=== PATIENT | male | born 1985 | race African-American/Black ===

== ENCOUNTER 2017-09-06 18:12 | Emergency (ER) | payer SELFPAY ==
[2017-09-06] MEDS ORDERED: TETANUS & DIPHTHERIA TOX,ADULT 0.5 ML VIAL ONE (19:20)
--- NOTE | 2017-09-06 19:28 | EDPHYS ---
Physician Documentation [facility] Name: Cornelius Murray Age: 32 yrs Sex: Male : 1985 Arrival Date: 09/06/2017 Time: 18:17 Bed 14 Private MD: None, None ED Physician Brandt Valle HPI: 09/06 19:12 This 32 yrs old Black Male presents to ER via Ambulatory with complaints of Foot Injury.gs 19:14 The patient presents with an injury. The complaints affect the right foot. 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 Onset: The symptoms/episode began/occurred acutely, just prior to arrival. Modifying factors: the symptoms are aggravated by weight bearing. Associated signs and symptoms: Pertinent positives: small laceration , Pertinent negatives: numbness. Historical: - Allergies: 18:30 No Known Allergies; hj - Home Meds: 18:30 None [Active]; hj - PMHx: 18:30 None; hj - PSHx: 18:30 None; hj - Immunization history:: Adult Immunizations up to date. - Social history:: Smoking status: Patient uses tobacco products, smokes one pack cigarettes per day. Patient uses alcohol, occasionally. - Ebola Screening: : Patient negative for fever greater than or equal to 101.5 degrees Fahrenheit, and additional compatible Ebola Virus Disease symptoms Patient denies exposure to infectious person Patient denies travel to an Ebola-affected area in the 21 days before illness onset. ROS: 19:20 Neuro: Negative for loss of consciousness. gs Exam: 19:20 Neuro: Awake and alert, GCS 15, oriented to person, place, time, and situation. gs Cranial nerves II-XII grossly intact. Motor strength 5/5 in all extremities. Sensory grossly intact. Cerebellar exam normal. Normal gait. 19:20 Constitutional: The patient appears in no acute distress, alert, awake. 19:20 Neck: C-spine: vertebral tenderness, is not appreciated. 19:20 Musculoskeletal/extremity: Extremities: noted in the Right second toenail, Right third toenail and Right fourth toenail: laceration, superficial lacerations, ROM: no acute changes, Circulation is intact in all extremities. 19:20 Skin: injury, laceration(s), that can be described as without bleeding, superficial distal phalanx r 2-4. Vital Signs: 18:31 BP 109 / 69; Pulse 65; Resp 18; Temp 98.7(O); Pulse Ox 100% on R/A; Weight 63.5 kg; hj Height 6 ft. 0 in. (182.88 cm); Pain 8/10; 18:31 Body Mass Index 18.99 (63.50 kg, 182.88 cm) MDM: 18:45 Patient medically screened. 19:20 Differential diagnosis: fracture, sprain, laceration. Data reviewed: vital signs, nurses notes. 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 Exp: mg2 11/04/2019. Lot #: [id number]. } Route: IM; Site: right deltoid; 19:22 Follow up: Response: No adverse reaction mg2 20:11 Drug: Ibuprofen 800 mg Route: PO; mg2 20:11 Follow up: Response: No adverse reaction; Medication administered at discharge. mg2 Disposition: 09/06/17 19:28 Discharged to Home. Impression: Nondisplaced fracture of distal phalanx of right lesser toe(s). - Condition is Stable. - Discharge Instructions: Toe Fracture, [id number]. - Prescriptions for Tylenol- Codeine #4 300-60 mg Oral Tablet - take 1 tablet by ORAL route every 6 hours As needed; 6 tablet. Keflex 500 mg Oral Capsule - take 1 capsule by ORAL route every 12 hours for 5 days; 10 capsule. - Medication Reconciliation Form, Thank You Letter, Antibiotic Education, Prescription Opioid Use form. - Follow up: Zeb Rivera MD; When: 2 - 3 days; Reason: Re-evaluation by your physician. Signatures: Dispatcher [employer] EDOK Gaetano Anguiano RN RN Brandt Valle MD MD Santos Tipton RN RN mg2 Corrections: (The following items were deleted from the chart) 20:13 19:28 09/06/2017 19:28 Discharged to Home. Impression: Nondisplaced fracture of distal mg2 phalanx of right lesser toe(s). Condition is Stable. Forms are Medication Reconciliation Form, Thank You Letter, Antibiotic Education, Prescription Opioid Use. Follow up: Zeb Rivera; When: 2 - 3 days; Reason: Re-evaluation by your physician. gs
--- NOTE | 2017-09-06 19:28 | ER ---
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 Transition of care: patient was not received from another setting of care. Onset of symptoms was September 06, 2017. Risk Assessment: Do you want to hurt yourself or someone else? Patient reports no desire to harm self or others. Initial Sepsis Screen: Does the patient meet any 2 criteria? No. Patient's initial sepsis screen is negative. Does the patient have a suspected source of infection? No. Patient's initial sepsis screen is negative. Care prior to arrival: None. 18:28 Method Of Arrival: Ambulatory 18:28 Acuity: MARY LOU 4 hj Triage Assessment: 18:30 General: Appears in no apparent distress. uncomfortable, Behavior is calm, cooperative, hj appropriate for age. Pain: Complains of pain in dorsum of right foot, Right second toenail, Right third toenail and Right fourth toenail. Musculoskeletal: Reports. 18:32 Injury Description: Crush injury. hj Historical: - Allergies: 18:30 No Known Allergies; hj - Home Meds: 18:30 None [Active]; hj - PMHx: 18:30 None; hj - PSHx: 18:30 None; hj - Immunization history:: Adult Immunizations up to date. - Social history:: Smoking status: Patient uses tobacco products, smokes one pack cigarettes per day. Patient uses alcohol, occasionally. - Ebola Screening: : Patient negative for fever greater than or equal to 101.5 degrees Fahrenheit, and additional compatible Ebola Virus Disease symptoms Patient denies exposure to infectious person Patient denies travel to an Ebola-affected area in the 21 days before illness onset. Screenin:30 Abuse screen: Denies threats or abuse. Denies injuries from another. Nutritional hj screening: No deficits noted. Tuberculosis screening: No symptoms or risk factors identified. Fall Risk None identified. Assessment: 19:06 General: Appears in no apparent distress. comfortable. Pain: Complains of pain in right mg2 foot and dorsum of right foot Pain began suddenly. Musculoskeletal: Circulation, motion, and sensation intact. Injury Description: Bruise sustained to right foot. Vital Signs: 18:31 BP 109 / 69; Pulse 65; Resp 18; Temp 98.7(O); Pulse Ox 100% on R/A; Weight 63.5 kg; hj Height 6 ft. 0 in. (182.88 cm); Pain 8/10; 18:31 Body Mass Index 18.99 (63.50 kg, 182.88 cm) hj ED Course: 18:17 Patient arrived in ED. sb2 18:17 None, None is Private Physician. sb2 18:29 Triage completed. hj 18:31 Arm band placed on left wrist. hj 18:31 Patient has correct armband on for positive identification. Bed in low position. Call hj light in reach. Side rails up X 1. 18:44 Brandt Valle MD is Attending Physician. gs 19:06 Santos Tipton RN is Primary Nurse. mg2 19:11 X-ray completed. Portable x-ray completed in exam room. Patient tolerated procedure bb2 well. 19:11 Foot Right 3 View XRAY In Process Unspecified. EDMS 19:27 Zeb Rivera MD is Referral Physician. gs 20:12 No provider procedures requiring assistance completed. Patient did not have IV access mg2 during this emergency room visit. 20:12 Steve wrap to 3rd and 4th toe strapping done. 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 Exp: mg2 11/04/2019. Lot #: [id number]. } Route: IM; Site: right deltoid; 19:22 Follow up: Response: No adverse reaction mg2 20:11 Drug: Ibuprofen 800 mg Route: PO; mg2 20:11 Follow up: Response: No adverse reaction; Medication administered at discharge. mg2 Outcome: 19:28 Discharge ordered by . gs 20:13 Discharged to home via wheelchair. mg2 20:13 Condition: stable 20:13 Discharge instructions given to patient, Instructed on discharge instructions, follow up and referral plans. medication usage, Demonstrated understanding of instructions, follow-up care, medications, Prescriptions given X 2. 20:13 Patient left the ED. mg2 Signatures: Dispatcher [employer] EDMS Gaetano Anguiano, RN RN hj Brandt Valle MD MD Monik Funez 2 Brissa Montemayor 2 Santos Tipton RN RN mg2 Corrections: (The following items were deleted from the chart) 18:33 18:31 Pulse 65bpm; Resp 18bpm; Pulse Ox 100% RA; Temp 98.7F Oral; 63.5 kg; Height 6 ft. hj 0 in.; BMI: 18.9; Pain 8/10; hj
--- NOTE | 2017-09-06 19:31 | RAD REPORT ---
EXAM DESCRIPTION: RAD - Foot Right 3 View - 09/06/2017 7:13 pm CLINICAL HISTORY: PAIN COMPARISON: No comparisons FINDINGS: A tuft fracture is seen involving the fourth toe. No additional fracture or subluxation is seen.
[2017-09-06] MEDS ORDERED: IBUPROFEN 400 MG TAB ONE (19:59)
== END 2017-09-06 20:13 | disposition home or self-care (01) ==
LOC: ER 18:12
DX: S92.534A Nondisplaced fracture of distal phalanx of right lesser toe(s), initial encounter for closed fracture (principal); W24.0XXA Contact with lifting devices, not elsewhere classified, initial encounter; Y93.89 Activity, other specified; Y92.59 Other trade areas as the place of occurrence of the external cause; F17.210 Nicotine dependence, cigarettes, uncomplicated
CPT/HCPCS: 90714; 99284